=== PATIENT | male | born 1935 | race Caucasian/White ===

== ENCOUNTER → 2016-11-08 05:00 | Outpatient (REF) | payer MEDICARE, SELFPAY ==
[2016-11-08 08:12] LABS: Hematocrit 35.3 % (40-54); Mean Corpuscular Volume 85.3 fL (80-94); Mean Platelet Vol. 9.7 fl (6.2-12.0); Platelet Count 76 K/mm3 (150-450); RBC Distribution Width CV 16.6 % (11.6-14.6); RBC Distribution Width SD 50.7 fl (35.1-43.9); Red Blood Count 4.14 M/mm3 (4.6-6.2); White Blood Count 10.5 K/mm3 (4.4-11.0)
[2016-11-08 08:15] LABS: Scan Indicated on CBC? Y/N NO
== END | disposition home or self-care (01) ==
LOC: OLS.ACW300 05:00
PROVIDERS: Visit Provider Family Medicine
DX: I21.4 Non-ST elevation (NSTEMI) myocardial infarction (principal); D69.6 Thrombocytopenia, unspecified; I50.9 Heart failure, unspecified; I48.91 Unspecified atrial fibrillation; I10 Essential (primary) hypertension; D64.9 Anemia, unspecified; M62.81 Muscle weakness (generalized); R27.9 Unspecified lack of coordination; Z90.49 Acquired absence of other specified parts of digestive tract
CPT/HCPCS: 36415; 85027